=== PATIENT | male | born 1960 | race Caucasian/White ===

== ENCOUNTER 2017-02-15 21:05 | Inpatient (IN) | payer BC, OTHER ==
[~2017-02-15] VITALS: Ht 172.7 cm; Wt 83.7 kg
[~2017-02-15 21:05] MED LIST: ALDACTONE25 MG PO; BAYER CHEWABLE81 MG PO; COENZYME Q10200 MG PO; CRESTOR40 MG PO; LEVAQUIN500 MG PO; LOPRESSOR 25 MG25 MG PO; LOVAZA1 GM PO; MONOPRIL TAB 1010 MG PO; NASONEX SPRAY 117 GM; NASONEX17 GM; NITROSTAT 0.40.4 MG SL; PLAVIX 75 MG TA75 MG PO; SOTALOL80 MG PO; TENORMIN 25 MG25 MG PO; TYLENOL W/CODEIN1 E1 PO; VITAMIN D1000 UNIT PO; WELCHOL625 MG PO; ZETIA10 MG PO; ZYRTEC10 M3 PO
[2017-02-15 22:02] LABS: HEMOGLOBIN 14.6 gm/dl (14.0-17.5); RED BLOOD COUNT 4.7 M/UL (4.20-5.50); WHITE BLOOD COUNT 6.5 K/UL (4.5-11.0)
[2017-02-15 22:22] LABS: BUN/CREATININE RATIO 22 (0-10)
[2017-02-16 03:58] LABS: RED BLOOD COUNT 4.81 M/UL (4.20-5.50); WHITE BLOOD COUNT 6.7 K/UL (4.5-11.0)
[2017-02-16 04:30] LABS: BUN/CREATININE RATIO 21 (0-10)
[2017-02-18] MEDS ORDERED: CORDARONE 200M200 MG PO ×2 (13:01→13:02)
[2017-02-18] MEDS ORDERED: MEXITIL CAP 20200 MG PO (13:02)
== END 2017-02-18 13:48 | disposition home or self-care (01) | DRG 309 ==
LOC: ER1 21:05 → ZEROF 02-16 01:45 → PROG CARE 02-16 01:45
PROVIDERS: Family Medicine; ADMIT Internal Medicine
DX: I47.2 Ventricular tachycardia (principal); I50.22 Chronic systolic (congestive) heart failure; I11.0 Hypertensive heart disease with heart failure; I25.10 Atherosclerotic heart disease of native coronary artery without angina pectoris; I25.5 Ischemic cardiomyopathy; E78.5 Hyperlipidemia, unspecified; Z72.0 Tobacco use; F41.9 Anxiety disorder, unspecified; Z95.810 Presence of automatic (implantable) cardiac defibrillator; Z72.3 Lack of physical exercise; Z79.02 Long term (current) use of antithrombotics/antiplatelets; Z79.82 Long term (current) use of aspirin; Z79.899 Other long term (current) drug therapy; Z98.890 Other specified postprocedural states; Z82.49 Family history of ischemic heart disease and other diseases of the circulatory system
CPT/HCPCS: ECHO; 36415; 71010; 80048; 80053; 80076; 82550; 82553; 83735; 83874; 83880; 84439; 84443; 84484; 85025; 85610; 85730; 93005; 93306; 96374; 99285; J1650; J2001; J2060; J2405; J7030

== ENCOUNTER 2017-03-02 23:53 | Emergency (ER) | payer BC, OTHER ==
[~2017-03-02 23:53] MED LIST changes: +CORDARONE 200M200 MG PO; +MEXITIL CAP 20200 MG PO
== END 2017-03-03 02:56 | disposition home or self-care (01) ==
LOC: ER1 23:53
DX: L50.0 Allergic urticaria (principal); T45.525A Adverse effect of antithrombotic drugs, initial encounter
CPT/HCPCS: 93005; 99282

== ENCOUNTER → 2020-12-23 | Outpatient (CLI) | payer MEDICARE, OTHER ==
[~2020-12-23] MED LIST changes: +DECADRON6 MG PO; +OMNICEF 300 MG300 MG PO; +ZITHROMAX250 MG PO; +ZOFRAN ODT 4 MG4 MG GT
== END ==
LOC: KOH-I 13:41
DX: R22.1 Localized swelling, mass and lump, neck (principal)
CPT/HCPCS: 76536

== ENCOUNTER 2020-12-29 17:41 | Emergency (ER) | payer MEDICARE, OTHER ==
[~2020-12-29 17:41] MED LIST changes: -DECADRON6 MG PO; -OMNICEF 300 MG300 MG PO; -ZITHROMAX250 MG PO; -ZOFRAN ODT 4 MG4 MG GT
[2020-12-29 19:13] LABS: HEMOGLOBIN 15.2 gm/dl (14.0-17.5); RED BLOOD COUNT 5.09 M/UL (4.20-5.50); WHITE BLOOD COUNT 4.9 K/UL (4.5-11.0)
[2020-12-29 19:33] LABS: BUN/CREATININE RATIO 10 (0-10)
[2020-12-30] MEDS ORDERED: ZITHROMAX250 MG PO (04:27)
[2020-12-30] MEDS ORDERED: OMNICEF 300 MG300 MG PO (04:27)
[2020-12-30] MEDS ORDERED: DECADRON6 MG PO (04:27)
[2020-12-30] MEDS ORDERED: ZOFRAN ODT 4 MG4 MG GT (04:34)
== END 2020-12-30 04:39 | disposition home or self-care (01) ==
LOC: ER1 17:41
PROVIDERS: Family Medicine
DX: Z23 Encounter for immunization (principal); U07.1 COVID-19; I95.1 Orthostatic hypotension; R05 Cough; I11.9 Hypertensive heart disease without heart failure; J44.9 Chronic obstructive pulmonary disease, unspecified; I25.2 Old myocardial infarction; Z95.0 Presence of cardiac pacemaker
CPT/HCPCS: 0240U; 71045; 80053; 82550; 82553; 83874; 84484; 85025; 87040; 93005; 96365; 96375; 99284; J0696; J2405; M0239

== ENCOUNTER 2021-01-11 00:28 | Emergency (ER) | payer MEDICARE, OTHER ==
[~2021-01-11 00:28] MED LIST changes: +DECADRON6 MG PO; +OMNICEF 300 MG300 MG PO; +ZITHROMAX250 MG PO; +ZOFRAN ODT 4 MG4 MG GT
[2021-01-11 01:15] LABS: HEMOGLOBIN 12.7 gm/dl (14.0-17.5); RED BLOOD COUNT 4.39 M/UL (4.20-5.50); WHITE BLOOD COUNT 11.8 K/UL (4.5-11.0)
[2021-01-11 01:36] LABS: BUN/CREATININE RATIO 19 (0-10)
== END 2021-01-11 03:30 | disposition home or self-care (01) ==
LOC: ER1 00:28
PROVIDERS: Emergency Medicine
DX: I10 Essential (primary) hypertension (principal); R53.83 Other fatigue; Z95.0 Presence of cardiac pacemaker
CPT/HCPCS: 71045; 80053; 81001; 83605; 83735; 84100; 85025; 87040; 87086; 93005; 96374; 99284; J1885